=== PATIENT | female | born 1950 | race Caucasian/White ===

== ENCOUNTER 2017-03-21 12:38 | Emergency (ER) | payer MEDICARE ==
[2017-03-21] MEDS ORDERED: Oxycodone/Acetaminophen 5/325 mg Tab PO STA (12:48)
[2017-03-21] MEDS ORDERED: Oxycodone/Acetaminophen 5/325 mg Tab ONE (12:51)
--- NOTE | 2017-03-21 12:51 | C.PDOC ---
History Of Present Illness 66 year old female was brought to the ED by EMS status post fall after misstepping when coming out of the bus and fell onto left elbow just prior to arrival. Patient notes pain is worse with movement and is unable to move left elbow. She denies any other associated injuries. sp fall PSYCHIATRY ADULT PHYSICIAN CO L ELBOW INJURY. PS MISSTEPPED COMING OUT OF BUS FELL ONTO L ELBOW. DENIES OTHER ASSOC INJ. PAIN WORSE W MOVEMENT, UNABLE TO MOVE L ELBOW. NPO SINCE 0900 EXAM MOD DIST NONTOXIC HEENT ATRAUM EXT LUE HELD IN PARTIAL FLEX; GEN TEND L ELBOW DEFORM VS SWELL. UNABLE TO SUPINATE. L WRIST, SHOULDER NEG. ?TEND /SWOLL VS TRAUMA DISTAL L HUMERUS SKIN INTACT NEURO NO FOCAL DEF Time Seen by Provider: 03/21/17 12:48 Chief Complaint (Nursing): Upper Extremity Problem/Injury History Per: Patient History/Exam Limitations: no limitations Onset/Duration Of Symptoms: Mins Current Symptoms Are (Timing): Still Present Quality: "Pain" Exacerbating Factor(s): Movement Recent travel outside of the [facility]: No Additional History Per: EMS Past Medical History Reviewed: Historical Data, Nursing Documentation, Vital Signs Vital Signs: Last Vital Signs Temp 98.0 F 03/21/17 17:25 Pulse 80 03/21/17 17:25 Resp 16 03/21/17 17:25 BP 127/67 03/21/17 17:25 Pulse Ox 96 03/21/17 17:25 - Medical History PMH: Arthritis, HTN, Hypercholesterolemia Surgical History: Appendectomy - [facility] Procedures COLONOSCOPY (03/16/15) Family History: States: Unknown Family Hx Review Of Systems Constitutional: Negative for: Fever, Chills Cardiovascular: Negative for: Chest Pain Respiratory: Negative for: Cough, Shortness of Breath Gastrointestinal: Negative for: Nausea, Vomiting Musculoskeletal: Positive for: Arm Pain (left elbow pain and swelling ) Physical Exam - Physical Exam Appears: Non-toxic, In Acute Distress (patient appears to be in moderate distress ) Skin: Warm, Dry Head: Atraumatic, Normacephalic Eye(s): bilateral: Normal Inspection, PERRL, EOMI Ear(s): Bilateral: Normal Nose: Normal, No Discharge Oral Mucosa: Moist Throat: Normal, No Erythema, No Exudate Neck: Supple Chest: Symmetrical, No Deformity Cardiovascular: Rhythm Regular, No Murmur Extremity: No Normal ROM (Extension of the left elbow limited. Left arm held in partial flexion. Patient unable to supinate ), Tenderness (general tenderness to left elbow to distal humerus ), Capillary Refill (good capillary refill, less than two seconds ), Deformity (of the left elbow ), Swelling (generalized swelling of the left elbow to distal humerus ), Other (left wrist and shoulder negative for swelling or tenderness ) Neurological/Psych: Oriented x3, Normal Speech, Normal Cognition, Other (No focal deficits) ED Course And Treatment - Other Rad Left elbow X-Ray X-Ray: Viewed By Me, Read By Radiologist Interpretation: IMPRESSION: Images are obtained through a cast which obscures osseous detail. Soft tissue swelling. Displaced radial head fracture. Fracture the lateral epicondyle cannot be excluded and is suboptimally visualized. Elevated anterior fat pad and presence of a posterior fat pad compatible with joint effusions. - CT Scan/US CT LEFT ELBOW WITHOUT CONTRAST Other Rad Studies (CT/US): Interpreted By Me, Read By Radiologist CT/US Interpretation: FINDINGS: Examination is positive for a comminuted impacted radial head fracture with the distal humerus and proximal ulna appearing to be spared. No dislocation or subluxation is appreciable grossly. The major radial fracture fragment appears displaced posteriorly with smaller fragments identified displaced laterally and anteriorly. Moderate anterior as well as posterior joint effusions are identified. No underlying suspicious lytic or blastic change. IMPRESSION: Comminuted left radial head fracture is appreciate without subluxation or dislocation. The major fracture fragments related to the upper left radial head are displaced posterior laterally. Please see discussion above. Progress Note: Patient has been NPO since 0900. Orthopedic Time Out: Side verified, Site verified, Patient ID confirmed Procedure: Splint Type: Short, Posterior Location: Left Other:: ELBOW Consent obtained: Verbal Performed by: Attending Physician Diagnosis: Fracture Location: Right Bone: Radius Capillary refill: Normal Distal Sensation: Normal Distal Motor Function: Normal Capillary Refill: Normal Compartment: Normal Distal Sensation: Normal Distal Motor Function: Normal Patient tolerated procedure: Well Notes:: SPLINTED POSITION OF COMFORT. UNABLE TO FLEX TO 90 DEG Progress - Re-Evaluation Re-evaluation Note: 03/21/17 13:[address] 03/21/17 15:[address] DUBON SINCE 1430. CO RECUR PAIN 03/21/17 15:36 D/W DR DUBON CLEARED FOR DC FU OFFICE 2 WEEKS - Data Reviewed Data Reviewed: Diagnostic imaging - Continuity of Care Discussed patient case with:: Patient, Family-HIPPA compliant Discussed pt. case with sap bw consultant/specialty: Orthopedic Surgery Disposition Counseled Patient/Family Regarding: Studies Performed, Diagnosis, Need For Followup, Rx Given - Disposition Referrals: Vanessa Dubon MD [Staff Provider] - Disposition: HOME/ ROUTINE Disposition Time: 15:37 Condition: IMPROVED Prescriptions: Ibuprofen [Motrin] 400 mg PO QID #30 tab oxyCODONE/Acetaminophen [Percocet 5/325 mg Tab] 1 tab PO QID PRN #14 tab PRN Reason: Pain Instructions: Elbow Fracture in Adults (ED) Forms: [employer] (Yi) Print Language: GREEK - Clinical Impression Clinical Impression: Radial head fracture - Scribe Statement The provider has reviewed the documentation as recorded by the Scribe Alva Mccracken All medical record entries made by the Scribe were at my direction and personally dictated by me. I have reviewed the chart and agree that the record accurately reflects my personal performance of the history, physical exam, medical decision making, and the department course for this patient. I have also personally directed, reviewed, and agree with the discharge instructions and disposition.
--- NOTE | 2017-03-21 13:42 | RAD ---
PROCEDURE: Radiographs of the left elbow Radiographs of the left humerus HISTORY: trauma COMPARISON: None available. FINDINGS: Suboptimal positioning due to patient pain. BONES: Images are obtained through a cast which obscures osseous detail. Displaced fracture of the radial head. Fracture the lateral epicondyle cannot be excluded and is suboptimally visualized. JOINTS: No dislocation. SOFT TISSUES: Soft tissue swelling. No evidence of radiopaque foreign body. JOINT EFFUSION: Elevated anterior fat pad and presence of a posterior fat pad compatible with effusions. OTHER FINDINGS: None IMPRESSION: Images are obtained through a cast which obscures osseous detail Soft tissue swelling. Displaced radial head fracture. Fracture the lateral epicondyle cannot be excluded and is suboptimally visualized. Elevated anterior fat pad and presence of a posterior fat pad compatible with joint effusions.
--- NOTE | 2017-03-21 14:26 | CT ---
PROCEDURE: CT LEFT ELBOW WITHOUT CONTRAST HISTORY: TRAUMA RO FX COMPARISON: Left elbow radiographs 03/21/2017 TECHNIQUE: Contiguous axial images were obtained through the chest with intravenous contrast enhancement. Sagittal and coronal reconstructions were performed. IV contrast: None Radiation dose (DLP): 380 mGy-cm. This CT exam was performed using one or more of the following dose reduction techniques: Automated exposure control, adjustment of the mA and/or kV according to patient size, and/or use of iterative reconstruction technique. FINDINGS: Examination is positive for a comminuted impacted radial head fracture with the distal humerus and proximal ulna appearing to be spared. No dislocation or subluxation is appreciable grossly. The major radial fracture fragment appears displaced posteriorly with smaller fragments identified displaced laterally and anteriorly. Moderate anterior as well as posterior joint effusions are identified. No underlying suspicious lytic or blastic change. IMPRESSION: Comminuted left radial head fracture is appreciate without subluxation or dislocation. The major fracture fragments related to the upper left radial head are displaced posterior laterally. Please see discussion above.
[2017-03-21 15:16] VITALS: RESP 16
[2017-03-21] MEDS ORDERED: Morphine 4 MG/ML VIAL ONE (15:23)
[2017-03-21 17:27] VITALS: BP 127/67; PULSE 80; TEMP 98; O2SAT 96
== END 2017-03-21 17:27 | disposition home or self-care (01) ==
LOC: C.ER 12:38
DX: S52.122A Displaced fracture of head of left radius, initial encounter for closed fracture (principal); W10.9XXA Fall (on) (from) unspecified stairs and steps, initial encounter
CPT/HCPCS: 29125; 73060; 73080; 73200; 96372; 99284; J2270

== ENCOUNTER 2017-04-11 07:00 | Day surgery (SDC) | payer MEDICARE ==
[2017-04-10 08:14] VITALS: BMI 24.5
[2017-04-11] MEDS ORDERED: Rocuronium 10 mg/ml (10 ml) ONE ×2 (07:49→10:45)
[2017-04-11] MEDS ORDERED: Propofol 10 mg/ml Inj (20 ML) ONE (07:52)
[2017-04-11] MEDS ORDERED: Midazolam 2 MG/2 ML VIAL ONE (07:52)
[2017-04-11] MEDS ORDERED: Lactated Ringer's 1,000 ML IV ONE ×2 (08:20→12:45)
[2017-04-11] MEDS ORDERED: ceFAZolin IV 2 gm in Dextrose 1 GM/50 ML BAG IVPB ONE (08:36)
[2017-04-11] MEDS ORDERED: Phenylephrine 10 mg/ml Inj ONE (08:41)
[2017-04-11] MEDS ORDERED: Bacitracin 50,000 UNIT in Sodium Chloride 0.9% Irrig 1,000 ML IR SCH (09:30)
[2017-04-11] MEDS ORDERED: Neostigmine Methylsulfate 3mg/3ml Syringe IV ONE (11:07)
[2017-04-11] MEDS ORDERED: Morphine 4 MG/ML VIAL ONE (11:07)
[2017-04-11] MEDS ORDERED: Naloxone 0.4 mg/ml Inj (Adult) ONE (11:29)
[2017-04-11] MEDS ORDERED: HYDROmorphone 0.5 mg/0.5 ml ISec IVP PRN (11:45)
[2017-04-11] MEDS ORDERED: Bupivacaine HCl 0.25% PF (10 ml) Inj ONE (12:46)
--- NOTE | 2017-04-11 13:31 | PCM.ANESB4 ---
Infraclavicular Block - Femoral Nerve Block Date of Procedure: 04/11/17 Anesthesiologist: Tigre Procedure Performed: Brachial Plexus at the Infraclavicular area Left - Procedure Infraclavicular Block: The procedure was explained to the patient that it is for the post-operative pain management. Consent was obtained after a thorough discussion with the patient regarding the benefits and possible complications of local anesthetic block of the brachial plexus at the supraclavicular area. The procedure was completed postoperatively in PACU. Standard monitors were applied. Time-out was held with the PACU nurse to confirm the correct site and the appropriate block. This area was prepped with chloraprep solution and The ultrasound transducer and sterile cover was then applied to the skin in the transverse plane and the brachial plexus was visualized. After thorough identification, #21 gauge Stimuplex 4-inch needle was inserted in -plane carefully under ultrasound visualization. After repeated negative aspiration, _20____cc of __0.25___% _bupivacaine Under ultrasound guidance. the local anesthetics were observed surrounding the cords of the brachial plexus. The needle was removed intact and sterile dressing was applied. The patient had stable vital signs, was conscious and in no apparent distress. The patient tolerated the supraclavicular block of the brachial plexus well with stable vital signs and good pain relief.
[2017-04-11 15:55] VITALS: O2SAT 97
--- NOTE | 2017-04-11 16:10 | PCM.SURG1 ---
Surgeon's Initial Post Op Note - Surgeon's Notes Surgeon: Vanessa Bernarod MD Lower In Supervisor: Momo Mcmillan PA-C Type of Anesthesia: General Endo, Block Regional Pre-Operative Diagnosis: Left elbow. #1 displaced radial head & neck fracture. #2 LCL tear/ instability Operative Findings: Left elbow. #1 displaced radial head & neck fracture. #2 LCL tear/ instability Post-Operative Diagnosis: Left elbow. #1 displaced radial head & neck fracture. #2 LCL tear/ instability Operation Performed: Left elbow #1 radial head replacement. #2 LCL reconstruction w/ allograft gracilis. #3 placement in long arm splint Specimen/Specimens Removed: specimen= radial head and neck fragments. complications= none. tourniquet time= 105 min at 250mmHg. implants= #1 [employer] Align Radial head system, 8mm stem, 2mm neck, 20mm head ( press fit). #2 [employer] bio composite swivel lock anchors x2 w/ gracilis allograft (JRF) Estimated Blood Loss: EBL {In ML}: 10 Blood Products Given: N/A Drains Used: No Drains Post-Op Condition: Good Date of Surgery/Procedure: 04/11/17 Time of Surgery/Procedure: 11:45
--- NOTE | 2017-04-11 16:30 | RAD ---
PROCEDURE: Intraoperative Fluoroscopy. HISTORY: LT. ELBOW RADIAL HEAD FX. ( MINI C-ARM) FINDINGS: Fluoroscopic assistance was provided. 5 min 6 sec fluoroscopy time utilized . Radiation dose = 51.8909 cGy -cm 1 minutes 50 seconds fluoroscopy time utilized Radiation dose = 18.3629 cGy-cm
[2017-04-11 18:30] VITALS: BP 125/56; PULSE 100; RESP 16; TEMP 97.8
--- NOTE | 2017-04-12 04:33 | OP ---
PROCEDURE DATE: 04/11/2017 PREOPERATIVE DIAGNOSES: 1. Left elbow displaced, comminuted radial head and neck fracture. 2. Lateral collateral ligament tear. POSTOPERATIVE DIAGNOSES: 1. Left elbow displaced, comminuted radial head and neck fracture. 2. Lateral collateral ligament tear. PROCEDURE: 1. Left elbow open radial head arthroplasty. 2. Lateral collateral ligament reconstruction with allograft . 3. Placement a long arm splint. SURGEON: Vanessa Bernardo MD STRETCHER DRIER OPERATOR: Momo Mcmillan PA-C. JUSTIFICATION FOR STRETCHER DRIER OPERATOR: Momo Mcmillan is a certified physician animal care assistant who skilled surgical services, was an absolute necessity for successful completion of the procedure. He provided skilled surgical assistance with positioning of the patient, positioning of extremity, management of the surgical aleman, retraction of the vascular structures, preparation of proximal radial head and neck for the radial head arthroplasty, removal of fracture fragment of radial head and neck, broaching and preparation of proximal radial shaft and placement of trial implants followed by placement of final implants, lateral collateral ligament reconstruction and preparation of graft including placement of anchors and tightening, wound closure, placement of long arm splint. Momo Mcmillan was present for the entire case and was an absolute necessity for successful completion of the procedure. TYPE OF ANESTHESIA: General endotracheal anesthesia with a postop regional nerve block placement by anesthesia staff in PACU. COMPLICATIONS: None. SPECIMEN: Radial head and neck bony fragments sent to pathology as per hospital protocol. TOURNIQUET TIME: 105 minutes. ESTIMATED BLOOD LOSS: 10 mL. DRAINS: None. IMPLANTS: 1. Skeletal dynamics align radial head arthroplasty system consisting of 8 mm press fit stem, 2 mm neck, 20 mm head. 2. [employer] biocomposite SwiveLock 4.75 mm anchors x2 and gracilis allograft tendon from [employer]. DISPOSITION: The patient was extubated, transferred to PACU in stable condition and tolerated procedure well. INDICATIONS FOR SURGERY: The patient is a 66-year-old female with a past medical history significant for hypertension, hypercholesterolemia and diabetes who presented to the office under my care for the first time on 03/25/2017 with left elbow pain and dysfunction since 03/21/2017. The patient states on 03/21/2017, she tripped and fell while at home landing on her left elbow resulting an immediate pain, swelling and deformity at the elbow and dysfunction. She went to the Emergency Room at [facility] and after evaluation by ER staff and reviewed the imaging, she was diagnosed with a displaced radial head and neck fracture with the radial head actually displaced into the anterior aspect of the elbow joint. An orthopedic consultation was placed and I evaluate the patient in the ER and after reviewed of her imaging with the patient, I recommended that she will be placed on a well-padded posterior splint and that she follow up in the office. She presented to the office on 03/25/2017, and imaging was reviewed once again as well as new x-rays taken in the office which revealed that the indeed was comminuted displaced fracture of the radial head and neck with the fragments displaced anteriorly at the elbow joint, restricting motion. There was also significant instability with varus stress. On her 03/25/2017, office visit, she was significantly swollen beyond capability for safe surgical intervention. She was placed in a new well-padded splint and I had a long discussion with the use of breastfeeding program coordinator, explaining her treatment options. With the displaced fragment sitting anteriorly blocking her motion and instability, the patient was indicated for a radial head arthroplasty and the possibility of the lateral collateral ligament reconstruction or repair depending on the quality o the tissue and the instability experiencing that to the radial head arthroplasty was carried out. The risks, benefits, and alternatives of the procedure was discussed at length with the patient, with the risks include not limited to infection, neurovascular damage, damaged to PIN nerve and resulting wrist drop and dysfunction, inability to return to preinjury level of activity, development of chronic pain and disability, development of blood clots including DVT and PE, need for further surgery, paraprosthetic fracture, need for revision surgery, development of lateral joint pain and accelerated wear, anesthesia reactions including , and perioperative cardiopulmonary compromise. After answering all of her questions with the use of Polish speaking music coordinator, the patient said that she understood the risks and wished to proceed with surgery. She was instructed to ice and elevate over period of 2 weeks and to follow up in my office for repeat evaluation and see how her swelling had progressed. Provisionally, she was given date of for surgery. She was also use the time to think about second opinion and whether or not she would definitely want to proceed with surgery. On her follow up in the office on 04/08/2017, indeed the swelling had improved that the patient was compliant with elevation and icing. The patient had thought about the surgery and once again the risks, benefits and alternatives were reviewed at length with her with the use of Polish speaking music coordinator and she decided that she would 100% like to proceed with surgery. She was referred for preadmission testing and her primary care doctor as well as wound/ostomy clinical nurse specialist for evaluation and clearance. The procedure was scheduled for 04/11/2017 at [facility]. Consistently on evaluation, she was neurovascularly intact and the PIN was intact and functioning. PROCEDURE IN DETAIL: The patient was identified in the preoperative holding area and the left elbow was marked for surgery. Once again as described above; the risks, benefits, and alternatives of the procedure were discussed at length with the patient and informed consent was obtained with the use of Polish speaking music coordinator. Our plan was to perform the radial head arthroplasty and reevaluate her stability and to visualize the lateral collateral ligament complex. If indeed she still has significant instability to varus stress and LCL instability and deficiency, then we would proceed with a lateral collateral ligament, primary repair versus reconstruction with allograft depending on the quality of the tissue. After brief discussion with anesthesia staff, perioperative IV antibiotics in the form of 2 g of Ancef were administered and the patient was taken to the operating room and placed on well-padded operating table with all bony prominences, superficial neurovascular structures well-padded. There was a radiolucent hand table attachment in position. An initial time-out was done with the surgeon, anesthesia staff, and OR staff and all are in agreement with the patient, procedure to be done, and extremity to be operated on. General anesthesia was administered without difficulty or complication. The left upper extremity was then prepped and draped in a standard sterile fashion. Examination under anesthesia, left elbow with skin intact and swelling 1+ and significantly improved, 3+ instability to varus stress throughout complete arc of range of motion which was limited, range of motion limited from 20 degrees with a mechanical block to full extension, up to 90 degrees with a mechanical block to full flexion. There was also limited supination and pronation with a mechanical block of 50 degrees and 60 degrees. Continuation of procedure, the left upper extremity was prepped and draped in the standard sterile fashion after tourniquet was placed high on the left arm and set to 250 mmHg. A final time-out was done with the surgeon, anesthesia staff, and OR staff, and all are in agreement with the patient, procedure to be done and extremity to be operated on. The right upper extremity was exsanguinated and tourniquet was inflated for a total tourniquet time of 105 minutes. A [place] approach was used for the lateral approach to the elbow and the incision was made through skin down to the subcutaneous tissue, down to the level of the fascia, starting at the lateral epicondyle extending down over the proximal ulna. A sharp incision was made through the interval between the anconeus and the extensor insertion at the lateral epicondyle. The ECRB insertion at the lateral epicondyle was elevated approximately 50% to allow access the underlying radiocapitellar joint. Capitellum was visualized and found to have an area of its most distal aspect with a grade III condyle injury with no full thickness conduit defect seen. With the retractors in place carefully and the wrist held in pronation to pull the PIN out of our surgical field, an intraarticular examination was carried out searching for the bony fragment and lose bodies. Fragments of the radial head and radial neck comminuted displaced fractures were found and removed and the elbow joint was copiously irrigated to remove any remaining fragments. Once this was carried out satisfaction, biplanar fluoroscopic imaging was carried out to confirm that there were no more loose bodies or bony fragments within the elbow joint. Attention was then turned towards preparation of the proximal radius. The cutting guide/bone forceps was used to hold the proximal radial neck. The 0 mm spacer was placed into position and a line was drawn on the radial neck for the radial neck cut. With the use of the micro saw, the radial neck cut was carried out over the guide. Broaching was then carried out proximally, starting with a 7 mm broach up to an 8 mm broach which was well seated and it found to have good fit. The 9 mm broach was not attempted as a fluoroscopic imaging showed that the 9 mm broach was actually larger than the proximal radius and fear of fracture blow out prevented us from broaching any higher with the 8 mm broach showing good scratch fit and seating. The machine fur cleaner was then engaged and carried out and leveled of the proximal radial cut. Trial implants with a 0 mm neck and 20 mm head which the fragments together measured approximately in the back table by my assistance were trialled and good stability was seen at the implant. There was continued varus instability. There was a significant amount of increased space and looseness at the radiocapitellar joint and we trialled with a 2 mm neck which was found to have a good fit and good fluoroscopic imaging of alignment. Final implants were then opened and the trial implants were removed and the elbow joints was copiously irrigated. Final implants consisting of 20 mm head, 8 mm press fit radial stem, and a 2 mm neck were opened and then assembled and placed into the proximal radius and impacted into position. The radial head was secured to the neck after the alignment albaro confirmed, optimal rotation and positioning. Alignment albaro pointed towards the ulnar styloid and fovea, restoring rotational access of the forearm. Once the alignment was confirmed, the torque limiting screw sanitation truck driver was used to secure the head to the neck. The elbow was taken through full range of motion and was able to achieve full extension and full flexion. Full pronation and full supination. There was residual lateral and collateral ligament instability, and indeed under direct visualization after a more posterior dissection on the lateral collateral ligament was completely blown out and was not amenable to repair as an attempt at direct repair with suture was carried out and the suture pulled right through. A decision was made to proceed with a lateral collateral ligament reconstruction at that point in time. With the use of fluoroscopic imaging, the epicondylar access at the lateral epicondyle was identified and drilled with the K-wire, provided by [employer]. The 5 mm cannulated drill was then passed over the guidewire and drilled to 15 mm stop for placement of the anchor. A 5 mm gracilis allograft tendon was whip stitched by my animal care assistant on both ends and one end was smoothed out and bulleted in preparation for the docking. The supinator crest at the proximal ulnar was exposed and confirmed on fluoroscopic imaging to be at an ideal position and the steps were repeated again for creation of the docking site for the ulnar side of the lateral collateral ligament reconstruction. The wound was copiously irrigated to remove any bony fragments and the ulnar side of the graft was docked first while maintaining good tension with the forked tip SwiveLock and confirmed to have good fit and stability achieved. The graft was then brought over to the lateral epicondyle with good tension maintained and the forked tip SwiveLock anchor 4.75 mm biocomposite was then placed with the graft docked within the predrilled 15 mm socket with good fixation achieved and tension at the graft. Once this was done with satisfaction, the excess graft was removed and the number 2 Fiber wire suture from both anchors and docking sites were then tied to each other as secondary stabilizer over the graft as an internal brace technique. The elbow was then tested and indeed lateral stability was achieved as there was a negative opening to varus stress at the lateral aspect of the elbow. The implant was examined once again under fluoroscopic imaging and found to be stable with great alignment obtained. The wound was copiously irrigated once again and deep tissue were reapproximated with combination of number 2 Fiber wire and number 1 Vicryl suture after the ECRB was repaired to the lateral epicondyle. Subcutaneous tissue was reapproximated with 2-0 Vicryl suture followed by 3-0 Monocryl suture for skin. Sterile dressings were applied followed by layer sterile cast padding from the metacarpal head up to the proximal arm. The arm was placed in a sugar-tong and posterior splint for stability and comfort. Once this splint harden with the over wrapping [place] wrap, the patient was then extubated from general anesthesia and transferred to PACU in stable condition and tolerated the procedure well. DISPOSITION: The patient has been instructed restrict now weightbearing to left upper extremity and keep the splint clean, dry and intact until she follows up in the office at [facility] within one week and already has a postoperative appointment setup. She was given a prescription for [place] as pain control. She will receive a regional nerve block by anesthesia staff in PACU after she is awaken from anesthesia. I personally evaluated the patient in PACU after she was awake and following commands and she exhibited full PIN nerve function with ability to exhibit 5/5 motor strength wrist extension, thumb extension and all fingers extension at the MCP joints with sensation intact. They will contact me directly if there are any questions or concerns. Vanessa Bernardo MD Marco Howell (Insert Co-signer name using "Ctrl + Shift + I" window. Delete the co-signature block if not applicable.)
== END 2017-04-11 18:15 | disposition home or self-care (01) ==
LOC: C.SDS 07:00
PROVIDERS: ATTEND Student in an Organized Health Care Education/Training Program
DX: S52.122A Displaced fracture of head of left radius, initial encounter for closed fracture (principal); S52.132A Displaced fracture of neck of left radius, initial encounter for closed fracture; S53.432A Radial collateral ligament sprain of left elbow, initial encounter; W01.0XXA Fall on same level from slipping, tripping and stumbling without subsequent striking against object, initial encounter; Y92.019 Unspecified place in single-family (private) house as the place of occurrence of the external cause; I10 Essential (primary) hypertension; E11.9 Type 2 diabetes mellitus without complications; E78.00 Pure hypercholesterolemia, unspecified
CPT/HCPCS: 24343; 24366; 36415; 76000; 82948; 86850; 86900; 88304; J0690; J1170; J2001; J2250; J2270; J2370; J2405; J2704; J2710; J3010; J7120

== ENCOUNTER 2017-09-23 11:49 | Emergency (ER) | payer MEDICARE, OTHER ==
[2017-09-23 11:49] VITALS: BMI 24.5
[2017-09-23 12:51] LABS: SQUAMOUS EPITHIAL 10 /hpf (0-5); URINE AMORPHOUS SEDIMENT RARE /ul (<OCC); URINE BACTERIA MOD (<OCC); URINE BILIRUBIN NEGATIVE (NEGATIVE); URINE BLOOD 2+ (NEGATIVE); URINE CLARITY Hazy (Clear); URINE GLUCOSE (UA) NORMAL (Normal); URINE LEUKOCYTE ESTERASE 3+ Leu/uL (Negative); URINE PROTEIN 1+ mg/dL (NEGATIVE)
[2017-09-23 12:52] LABS: URINE COLOR YELLOW (YELLOW)
[2017-09-23] MEDS ORDERED: Sodium Chloride 0.9% 1,000 ML IV ONE (13:35)
[2017-09-23] MEDS ORDERED: Belladonna-Phenobarbital PO STA (13:35)
[2017-09-23] MEDS ORDERED: Sodium Chloride 0.9% 1,000 ML ONE (13:56)
[2017-09-23] MEDS ORDERED: Belladonna-Phenobarbital ONE (13:56)
[2017-09-23 14:15] LABS: BASO # 0.1 K/uL (0.0-0.2); EOS # 0.1 K/uL (0.0-0.7); EOS % 0.9 % (0.0-4.0); HEMOGLOBIN 14.3 g/dL (11.0-16.0); LYMPH # 2.1 K/uL (1.0-4.3); LYMPH % 31.7 % (20.0-40.0); MEAN CELL VOLUME 90.5 fL (81.0-99.0); MEAN CORPUSCULAR HEMOGLOBIN 30.6 pg (27.0-31.0); MEAN CORPUSCULAR HGB CONC 33.8 g/dL (33.0-37.0); MONO # 0.7 K/uL (0.0-0.8); MONO % 10.9 % (0.0-10.0); NEUT # 3.6 K/uL (1.8-7.0); NEUT % 55.5 % (50.0-75.0); NRBC % 0.1 % (0.0-2.0); RBC 4.67 Mil/uL (3.80-5.20); RED CELL DISTRIBUTION WIDTH 14.2 % (11.5-14.5); WHITE BLOOD COUNT 6.5 K/uL (4.8-10.8)
[2017-09-23 14:25] LABS: ALB/GLOB RATIO 1.1 (1.0-2.1); ALBUMIN 4.4 g/dL (3.5-5.0); ALT/SGPT 40 U/L (9-52); AST/SGOT 35 U/L (14-36); BLOOD UREA NITROGEN 10 mg/dL (7-17); CALCIUM 8.2 mg/dl (8.6-10.4); GFR AFRICAN-AMERICAN > 60; GFR NON-AFRICAN AMERICAN > 60; LIPASE 136 U/L (23-300)
--- NOTE | 2017-09-23 14:33 | C.PDOC ---
Time Seen by Provider: 09/23/17 13:29 Chief Complaint (Nursing): GI Problem History Per: Patient, Family Onset/Duration Of Symptoms: Days (2) Current Symptoms Are (Timing): Still Present Severity: Moderate Location Of Pain/Discomfort: Diffuse Quality Of Discomfort: Cramping Associated Symptoms: Nausea, Vomiting, Diarrhea Exacerbating Factors: Food Alleviating Factors: None Last Bowel Movement: Today Recent travel outside of the [place]: No Additional History Per: Prior Records Past Medical History Reviewed: Historical Data, Nursing Documentation, Vital Signs Vital Signs: Last Vital Signs Temp 98.1 F 09/23/17 12:25 Pulse 72 09/23/17 12:25 Resp 19 09/23/17 12:25 BP 120/70 09/23/17 12:25 Pulse Ox 99 09/23/17 12:25 - Medical History PMH: Arthritis, HTN, Hypercholesterolemia, Hypothyroidism Surgical History: Appendectomy, Endoscopy - [facility] COLONOSCOPY (03/16/15) Family History: States: Unknown Family Hx - Social History Hx Alcohol Use: No Hx Substance Use: No - Immunization History Hx Tetanus Toxoid Vaccination: No Hx Influenza Vaccination: No Hx Pneumococcal Vaccination: No Review Of Systems Except As Marked, All Systems Reviewed And Found Negative. Constitutional: Negative for: Fever, Weakness Cardiovascular: Negative for: Chest Pain Respiratory: Negative for: Shortness of Breath Gastrointestinal: Positive for: Nausea, Vomiting, Abdominal Pain, Diarrhea. Negative for: Melena, Hematochezia, Hematemesis Genitourinary: Negative for: Dysuria Musculoskeletal: Negative for: Neck Pain Skin: Negative for: Rash Neurological: Negative for: Weakness, Numbness Physical Exam - Physical Exam Appears: Non-toxic, No Acute Distress Skin: Normal Color, Warm, Dry, No Rash Head: Atraumatic, Normacephalic Eye(s): bilateral: Normal Inspection, PERRL, EOMI Oral Mucosa: Moist Neck: Normal ROM, Supple Cardiovascular: Rhythm Regular Respiratory: Normal Breath Sounds, No Accessory Muscle Use Gastrointestinal/Abdominal: Soft, Tenderness (nonspecific), No Guarding, No Rebound Back: No CVA Tenderness Extremity: Normal ROM Neurological/Psych: Oriented x3, Normal Motor, Normal Sensation ED Course And Treatment - Laboratory Results Result Diagrams: 09/23/17 14:07 09/23/17 14:07 Interpretation Of Abnormal: Probable UTI, urine C&S sent. O2 Sat by Pulse Oximetry: 99 Pulse Ox Interpretation: Normal Progress Note: Pt feels much better and wants to go home. Reassessment Condition: Improved Progress - Interventions Interventions:: Observation, Intravenous fluid - Medications Administered Intravenous: Antiemetic, H-2 imer - Data Reviewed Data Reviewed: Lab, Old records - Patient Status Patient status: Mostly improved - Continuity of Care Discussed patient case with:: Patient, Family-HIPPA compliant, ED Nurse - Patient Plan Patient Plan: Discharge, F/U with PCP, Continue present meds Disposition Counseled Patient/Family Regarding: Studies Performed, Diagnosis, Need For Followup, Rx Given - Disposition Disposition: HOME/ ROUTINE Disposition Time: 14:33 Condition: IMPROVED Additional Instructions: Drink plenty of fluids. Follow up with your doctor this week for further evaluation and treatment. Return to the ER if you develop fever, bloody stools, not tolerating fluids, worsening of symptoms or if you have any other concerns. Prescriptions: Ciprofloxacin [Cipro] 1 tab PO BID #14 tab Metronidazole [Flagyl] 500 mg PO BID #14 tablet Ondansetron [Zofran] 4 mg PO Q8H PRN #15 tab PRN Reason: Nausea/Vomiting Instructions: Viral Gastroenteritis, Adult (DC), Urinary Tract Infection, Adult (DC) Forms: [employer] (Romanian) Print Language: CROATIAN - Clinical Impression Clinical Impression: Nausea, vomiting, and diarrhea, Abdominal pain, UTI (urinary tract infection)
[2017-09-23 14:56] VITALS: BP 116/67; PULSE 73; RESP 16; TEMP 97.7; O2SAT 98
== END 2017-09-23 14:56 | disposition home or self-care (01) ==
LOC: C.ER 11:49
DX: N39.0 Urinary tract infection, site not specified (principal); R19.7 Diarrhea, unspecified; R11.2 Nausea with vomiting, unspecified; E78.00 Pure hypercholesterolemia, unspecified; I10 Essential (primary) hypertension; E03.9 Hypothyroidism, unspecified
CPT/HCPCS: 80053; 81001; 83690; 85025; 87086; 96361; 96374; 96375; 99285; J2405; J7040